=== PATIENT | male | born 1940 | race Caucasian/White ===

== ENCOUNTER 2016-10-19 10:44 | Emergency (ER) | payer MEDICARE ==
[2016-10-19] MEDS ORDERED: NITROGLYCERIN OINT 1 INCH/GM PACKET TOPICAL STA (11:31)
--- NOTE | 2016-10-19 11:36 | ED ---
Chest Pain HPI - General Chief Complaint: Chest Pain Stated Complaint: Chest pain Time Seen by Provider: 10/19/16 11:00 Source: patient, family, RN notes reviewed Mode of arrival: ambulatory - History of Present Illness Initial Comments: This is a 76 -year-old male with a history of chronic atrial fibrillation and history of heart disease who states he had the onset this morning of severe right-sided chest heaviness that went to his throat and to his back. It started around 05/03/1930 this morning. He took nitroglycerin without much relief later took another without much relief he states it was 8/10 severity he states that after he arrived in the emergency department and had oxygen placed with no change.. He states he is scheduled to be admitted to have his atrial fibrillation regulated. He denies any fevers chills nausea vomiting sweats cough or other symptoms at this time. MD Complaint: chest pain - Related Data Home Medications Medication Instructions Recorded Confirmed Metoprolol Succinate 25 mg PO QAM 07/08/14 10/19/16 Nitroglycerin Sl Tabs [Nitrostat] 0.4 mg SUBLINGUAL Q5M PRN 07/08/14 10/19/16 Apixaban [Eliquis] 5 mg PO BID 07/20/16 10/19/16 Aspirin 81 mg PO DAILY 07/20/16 10/19/16 Cholecalciferol [Vitamin D3] 1,000 unit PO DAILY 07/20/16 10/19/16 Multivitamin [Men's Multi-Vitamin] 1 tab PO DAILY 07/20/16 10/19/16 Vitamin E 400 unit PO DAILY 07/20/16 10/19/16 amLODIPine BESYLATE [Norvasc] 2.5 mg PO DAILY 07/20/16 10/19/16 metFORMIN HCL [Glucophage] 500 mg PO DAILY 07/20/16 10/19/16 Losartan Potassium 100 mg PO DAILY 10/19/16 10/19/16 Simvastatin [Zocor] 20 mg PO HS 10/19/16 10/19/16 Allergies Allergy/AdvReac Type Severity Reaction Status Date / Time No Known Allergies Allergy Verified 10/19/16 11:16 Review of Systems ROS Statement: Those systems with pertinent positive or pertinent negative responses have been documented in the HPI. ROS Other: All systems not noted in ROS Statement are negative. EKG Findings - EKG Results: EKG: interpreted by ANNA (Atrial fibrillation rate was 65 QRS duration 90 QT/ QTC of 372/386 left exodeviation old septal changes also old inferior changes.) Past Medical History Past Medical History: Atrial Fibrillation, Chest Pain / Angina, Diabetes Mellitus, Hyperlipidemia, Hypertension, Sleep Apnea/CPAP/BIPAP Additional Past Medical History / Comment(s): SOB w/exertion, uses BIPAP History of Any Multi-Drug Resistant Organisms: None Reported Past Surgical History: Heart Catheterization With Stent, Joint Replacement Additional Past Surgical History / Comment(s): bilateral knee replacement, recent cardioversion Past Anesthesia/Blood Transfusion Reactions: No Reported Reaction, Motion Sickness Date of Last Stent Placement:: 2013 Past Psychological History: No Psychological Hx Reported Smoking Status: Former smoker Past Alcohol Use History: Rare Additional Past Alcohol Use History / Comment(s): quit smoking 1973, smoked since age of 20-smoked cigars & pipe Past Drug Use History: None Reported - Past Family History Daughter(s) Family Medical History: Cancer Sister(s) Family Medical History: Deep Vein Thrombosis (DVT) General Exam - General Exam Comments Initial Comments: This is a well-developed well-nourished awake alert oriented times 3 male General appearance: alert, in no apparent distress Head exam: Present: atraumatic, normocephalic, normal inspection Eye exam: Present: normal appearance, PERRL, EOMI. Absent: scleral icterus, conjunctival injection, periorbital swelling ENT exam: Present: normal exam, mucous membranes moist Neck exam: Present: normal inspection. Absent: tenderness, meningismus, lymphadenopathy Respiratory exam: Present: normal lung sounds bilaterally. Absent: respiratory distress, wheezes, rales, rhonchi, stridor Cardiovascular Exam: Present: regular rate, normal rhythm, normal heart sounds. Absent: systolic murmur, diastolic murmur, rubs, gallop, clicks GI/Abdominal exam: Present: soft, normal bowel sounds. Absent: distended, tenderness, guarding, rebound, rigid Extremities exam: Present: normal inspection, full ROM, normal capillary refill. Absent: tenderness, pedal edema, joint swelling, calf tenderness Back exam: Present: normal inspection Neurological exam: Present: alert, oriented X3, CN II-XII intact Psychiatric exam: Present: normal affect, normal mood Skin exam: Present: warm, dry, intact, normal color. Absent: rash Course Vital Signs 10/19/16 10/19/16 10/19/16 10:49 11:23 12:40 Temperature 98.4 F Pulse Rate 76 64 Pulse Rate [ 69 [facility] ] Respiratory 18 18 Rate Blood Pressure 145/72 116/70 O2 Sat by Pulse 98 98 Oximetry 10/19/16 14:04 Temperature 97.8 F Pulse Rate 66 Pulse Rate [ [facility] Director ] Respiratory 16 Rate Blood Pressure 113/62 O2 Sat by Pulse 100 Oximetry - Reevaluation(s) Reevaluation #1: 10/19/16 15:24 He states he had no major relief he does point right to the right costosternal junction however. He does get worse with movements and deep breathing. Chest Pain MDM - MDM X-rays are nonspecific I did a long discussion with the patient has regarding the findings. The presentation is consistent with costochondritic etiology versus cardiac or pulmonary. Patient will be discharged he went to follow-up with his doctor and return when necessary Disposition Clinical Impression: Costochondritis, acute, Atypical chest pain Disposition: HOME SELF-CARE Condition: Good Instructions: Costochondritis (ED), Chest Pain (ED) Additional Instructions: It is okay to use her home pain medication. Referrals: Musa Knight MD [Primary Care Provider] - 1-2 days
[2016-10-19 12:04] LABS: Basophils % (A) 1 %; CH 32.4; CHCM 34.8; Eosinophils # (A) 0.1 k/uL (0-0.7); Eosinophils % (A) 2 %; HCT 41.5 % (39.0-53.0); HDW 2.88; HGB 13.9 gm/dL (13.0-17.5); Luc # (Auto) 0.15; Luc % (Auto) 3; Lymphocytes # (A) 1.6 k/uL (1.0-4.8); Lymphocytes % (A) 30 %; MCH 31.3 pg (25.0-35.0); MCHC 33.5 g/dL (31.0-37.0); MCV 93.5 fL (80.0-100.0); Mean Platelet Volume 7.6; Monocytes # (A) 0.3 k/uL (0-1.0); Monocytes % (A) 6 %; Neutrophils # (A) 3.3 k/uL (1.3-7.7); Neutrophils % (A) 59 %; RBC 4.44 m/uL (4.30-5.90); RDW 13.4 % (11.5-15.5); WBC 5.5 k/uL (3.8-10.6); WBC (Perox) 5.61
[2016-10-19 12:11] LABS: ALT 52 U/L (21-72); AST 32 U/L (17-59); Alkaline Phosphatase 42 U/L (38-126); Amylase <30 U/L (30-110); Anion Gap 10 mmol/L; Blood Urea Nitrogen 21 mg/dL (9-20); Calcium 8.7 mg/dL (8.4-10.2); Carbon Dioxide 26 mmol/L (22-30); Chloride 108 mmol/L (98-107); Glucose 112 mg/dL (74-99); Magnesium 2.1 mg/dL (1.6-2.3); Non-African American GFR(MDRD) >60 (>60 ml/min/1.73 sqM); Potassium 4.1 mmol/L (3.5-5.1); Sodium 144 mmol/L (137-145); Total Protein 6.2 g/dL (6.3-8.2)
[2016-10-19 12:20] LABS: INR 1.2 (<1.1); Partial Thromboplastin Time 23.6 sec (22.0-30.0); Prothrombin Time 11.6 sec (9.0-12.0)
--- NOTE | 2016-10-19 12:41 | XR ---
EXAMINATION TYPE: XR chest 2V DATE OF EXAM: 10/19/2016 12:20 PM COMPARISON: 07/03/2014 HISTORY: 76-year-old male with chest pain TECHNIQUE: Frontal and lateral views FINDINGS: Heart is upper limits of normal in size with mild elongation of the thoracic aorta. Pulmonary vascula ture within normal limits. Some strandy left basilar opacity is noted. IMPRESSION: Some strandy left basilar atelectasis. No definite acute process.
[2016-10-19 13:02] LABS: Creatine Kinase 139 U/L (55-170)
[2016-10-19 13:14] LABS: Creatine Kinase MB 2.1 ng/mL (0.0-2.4); Troponin I <0.012 ng/mL (0.000-0.034)
[2016-10-19 14:04] VITALS: RESP 16
[2016-10-19 15:54] VITALS: BP 118/70; PULSE 55; TEMP 98.7
== END 2016-10-19 16:00 | disposition home or self-care (01) ==
LOC: EC 10:44
DX: M94.0 Chondrocostal junction syndrome [Tietze] (principal); R07.89 Other chest pain; I48.2 Chronic atrial fibrillation; I51.9 Heart disease, unspecified; E11.9 Type 2 diabetes mellitus without complications; I10 Essential (primary) hypertension; E78.5 Hyperlipidemia, unspecified; Z79.01 Long term (current) use of anticoagulants; Z79.82 Long term (current) use of aspirin; Z79.899 Other long term (current) drug therapy; Z87.891 Personal history of nicotine dependence
CPT/HCPCS: 36415; 71020; 80053; 82150; 82550; 82553; 83690; 83735; 83880; 84484; 85025; 85610; 85730; 99285

== ENCOUNTER 2016-10-22 10:14 | Inpatient (IN) | payer MEDICARE ==
[2016-10-22 14:44] VITALS: BMI 44.7
[2016-10-22] MEDS ORDERED: MAGNESIUM SULFATE-D5W PMX 1 GM in DEXTROSE/WATER 1 100ML.BAG IVPB ONE (15:05)
[2016-10-22 16:13] LABS: Anion Gap 12 mmol/L; Blood Urea Nitrogen 21 mg/dL (9-20); Calcium 9.3 mg/dL (8.4-10.2); Carbon Dioxide 26 mmol/L (22-30); Chloride 107 mmol/L (98-107); Glucose 86 mg/dL (74-99); Non-African American GFR(MDRD) 59 (>60 ml/min/1.73 sqM); Potassium 4.4 mmol/L (3.5-5.1); Sodium 145 mmol/L (137-145)
[2016-10-22 16:46] LABS: Glucose,Whole Blood 99 mg/dL (75-99)
[2016-10-22] MEDS ORDERED: DOFETILIDE 500 MCG CAP PO STA (17:37)
[2016-10-22] MEDS: APIXABAN 5 MG TAB PO SCH (20:02)
[2016-10-22] MEDS: ATORVASTATIN 20 MG TAB PO SCH (20:02)
[2016-10-22 20:35] LABS: Glucose,Whole Blood 93 mg/dL (75-99)
[2016-10-23] MEDS ORDERED: DOFETILIDE 500 MCG CAP PO ONE (06:00)
[2016-10-23 06:59] LABS: Glucose,Whole Blood 104 mg/dL (75-99)
[2016-10-23] MEDS: metFORMIN 500 MG TAB PO SCH (07:03)
[2016-10-23 07:46] LABS: Anion Gap 12 mmol/L; Blood Urea Nitrogen 21 mg/dL (9-20); Calcium 9.2 mg/dL (8.4-10.2); Carbon Dioxide 23 mmol/L (22-30); Chloride 105 mmol/L (98-107); Glucose 95 mg/dL (74-99); Non-African American GFR(MDRD) 59 (>60 ml/min/1.73 sqM); Potassium 4.1 mmol/L (3.5-5.1); Sodium 140 mmol/L (137-145)
[2016-10-23] MEDS: MAGNESIUM OXIDE 250 MG TAB PO SCH (08:59)
[2016-10-23] MEDS ORDERED: LOSARTAN 50 MG TAB PO SCH (09:00)
[2016-10-23] MEDS ORDERED: METOPROLOL SUCCINATE (ER) 25 MG TAB.ER.24H PO SCH (09:00)
[2016-10-23] MEDS: APIXABAN 5 MG TAB PO SCH ×2 (09:00→22:07)
[2016-10-23] MEDS: ASPIRIN 81 MG CHEW PO SCH (09:00)
[2016-10-23] MEDS ORDERED: amLODIPine 2.5 MG TAB PO SCH (09:00)
--- NOTE | 2016-10-23 10:54 | PN ---
A 76-year-old male patient of Dr. Pascual and Dr. Knight who has persistent atrial fibrillation with shortness of breath with minimal exertion. He is brought in for dofetilide initiation. His baseline 12-lead ECG shows atrial fibrillation with a slow ventricular response. His baseline labs were as follows: Sodium 145, potassium 4.4, chloride 107, bicarb 26, BUN 21, creatinine 1.2, magnesium 2.0, calcium 9.3, ( ) 0.9. His creatinine clearance is calculated greater than 100. He received dofetilide last night 500 mcg. This morning he received another 500 mcg of dofetilide and at about 7:30 in the morning he converted back to sinus rhythm. However, at night he was significantly bradycardic during atrial fibrillation. His 12-lead ECG after conversion showed sinus rhythm, normal LA interval, narrow QRS, and absolute QT interval of about 440 to 450 ms after the second dose of dofetilide 500 mcg, with a ventricular rate of 59 beats a minute. He feels well. He denies any chest discomfort. No dizziness, lightheadedness. He is ambulating in the hallways. His follow up labs normal. His potassium is 4.1, magnesium 2.0. Kidney functions stable. IMPRESSION: 1. Persistent atrial fibrillation, symptomatic. 2. Bradycardia, especially at night. 3. Obstructive sleep apnea on BiPAP mask. 4. Adult-onset diabetes. 5. Hypertension. 6. Coronary artery disease, status post stenting. 7. Increased body mass index. 8. Persistent symptomatic atrial fibrillation being the admitting diagnosis and dofetilide has been initiated. SUGGEST: Follow dofetilide protocol. We will continue 500 mcg tonight and continue Slow-Mag. Add spironolactone 25 mg p.o. daily, stop amlodipine and stop metoprolol and start carvedilol tomorrow and continue losartan 100 mg daily and continue Eliquis. I will consult Dr. Knight for diabetes management.
[2016-10-23] MEDS: SPIRONOLACTONE 25 MG TAB PO SCH (12:28)
[2016-10-23 12:39] LABS: Glucose,Whole Blood 98 mg/dL (75-99)
[2016-10-23] MEDS ORDERED: NITROGLYCERIN SL TABS 0.4 MG TAB SUBLINGUAL PRN (12:45)
[2016-10-23 17:08] LABS: Glucose,Whole Blood 132 mg/dL (75-99)
[2016-10-23] MEDS ORDERED: DOFETILIDE 125 MCG CAP PO ONE (18:00)
[2016-10-23] MEDS: ATORVASTATIN 20 MG TAB PO SCH (22:07)
[2016-10-23 22:17] LABS: Glucose,Whole Blood 109 mg/dL (75-99)
[2016-10-24] MEDS ORDERED: DOFETILIDE 500 MCG CAP PO ONE ×2 (06:00→18:00)
[2016-10-24 06:28] LABS: Anion Gap 10 mmol/L; Blood Urea Nitrogen 21 mg/dL (9-20); Calcium 9.4 mg/dL (8.4-10.2); Carbon Dioxide 26 mmol/L (22-30); Chloride 106 mmol/L (98-107); Glucose 92 mg/dL (74-99); Magnesium 2.1 mg/dL (1.6-2.3); Non-African American GFR(MDRD) 59 (>60 ml/min/1.73 sqM); Potassium 4.5 mmol/L (3.5-5.1); Sodium 142 mmol/L (137-145)
[2016-10-24 06:35] LABS: Glucose,Whole Blood 93 mg/dL (75-99)
[2016-10-24] MEDS: metFORMIN 500 MG TAB PO SCH (06:39)
[2016-10-24] MEDS ORDERED: CARVEDILOL 3.125 MG TAB PO SCH (07:30)
[2016-10-24] MEDS: APIXABAN 5 MG TAB PO SCH ×2 (08:38→22:32)
[2016-10-24] MEDS: SPIRONOLACTONE 25 MG TAB PO SCH (08:39)
[2016-10-24] MEDS: ASPIRIN 81 MG CHEW PO SCH (08:39)
[2016-10-24] MEDS: CHOLECALCIFEROL 1,000 UNIT TAB PO SCH (08:39)
[2016-10-24] MEDS: MAGNESIUM OXIDE 250 MG TAB PO SCH (08:39)
[2016-10-24] MEDS: LOSARTAN 50 MG TAB PO SCH (08:39)
[2016-10-24] MEDS ORDERED: amLODIPine 2.5 MG TAB PO SCH (09:00)
[2016-10-24 12:07] LABS: Glucose,Whole Blood 82 mg/dL (75-99)
[2016-10-24] MEDS: MULTIVITAMINS, THERA 1 EACH TAB PO SCH (12:26)
--- NOTE | 2016-10-24 13:51 | PN ---
Mr. La is doing well. He is sinus rhythm. He denies any chest discomfort. No undue shortness of breath. He denies any palpitations. He is ambulating in the hallways. He maintains sinus rhythm. His temperature is 97 degrees Fahrenheit. His pulse rate is in the 50s. Blood pressure 139/63 mm of Hg. Normal respirations. Head and neck examination is normal. Breath sounds are normal. No rhonchi. No crackles. Heart sounds S1, S2 are normal. Very soft systolic murmur is audible. No lower extremity edema. His labs are reviewed. His sodium is 142, potassium 4.5, chloride 106, BUN 21, creatinine 1.2, GFR greater than 60, magnesium 2.1, calcium 9.4. 12 lead ECG shows sinus rhythm with blocked P waves and ( ) QT interval 440 ms. He is currently on dofetelide 500 mcg given twice daily so far. He chemically converted after the second dose. There has been no change in his QT interval since yesterday. PLAN: Continue Apixaban 5 mg twice daily. Continue baby aspirin. Continue atorvastatin. I am reducing the dose of carvedilol to 1.563 mg p.o. b.i.d. week and he will be given dofetelide this evening, losartan 100 mg will continue, Slow-Mag will continue, spironolactone will continue and then Metformin will continue. I have D/C'd amlodipine. His blood pressure is in the normal range at this time. If necessary, I will reinstitute amlodipine or simply increase losartan to 150 mg a day.
--- NOTE | 2016-10-24 14:28 | P.CONS ---
History of Present Illness - Reason for Consult Consult date: 10/23/16 Medical management Requesting physician: Justo Honeycutt - Chief Complaint A. fib with RVR, CAD, obstructive sleep apnea, type 2 diabetes, hypertensio - History of Present Illness 76-year-old male morbidly obese one of my office patient of known for long time with past medical history of CAD, history of A. fib, history of obstructive sleep apnea and adult type of diabetes who has been seeing cardiology for the last few years. Patient was seen by cardiology recently for persistent A. fib with RVR with not control A. fib did not convert and become more symptomatic. Patient apparently was referred from Dr. Pascual on to Dr. Carver and hospitalized for Tikosyn treatment. I was requested to see patient in medical consultation. Review of Systems Constitutional: Reports fatigue, Reports lethargy, Reports malaise, Reports weight gain, Denies as per HPI, Denies anorexia, Denies chills, Denies chronic headaches, Denies chronic pain, Denies daytime sleepiness, Denies fever, Denies night sweats, Denies poor appetite, Denies sweats, Denies weakness, Denies weight loss Eyes: bilateral as per HPI Ears: bilateral: decreased hearing Ears, nose, mouth and throat: Reports nasal discharge, Reports sinus pressure, Reports swelling in mouth, Denies as per HPI, Denies ant. neck pain, Denies bleeding gums, Denies dental pain, Denies dysphagia, Denies epistaxis, Denies headache, Denies hoarseness, Denies mouth pain, Denies nasal congestion, Denies neck fullness/pressure, Denies neck lump, Denies nose pain, Denies odynophagia, Denies post-nasal drip, Denies sinus pain, Denies swelling in throat, Denies sore throat, Denies vertigo, Denies voice changes Cardiovascular: Reports chest pain, Reports decreased exercise tolerance, Reports dyspnea on exertion, Reports edema, Reports high blood pressure, Reports lightheadedness, Reports orthopnea, Reports palpitations, Reports paroxysmal nocturnal dyspnea, Reports shortness of breath, Denies as per HPI, Denies claudication, Denies irregular heart beat, Denies phlebitis, Denies rapid heart beat, Denies syncope Respiratory: Reports congestion, Reports cough, Reports dyspnea, Reports wheezing, Denies as per HPI, Denies cough with sputum, Denies excessive sputum, Denies hemoptysis, Denies home oxygen, Denies pain, Denies pain on inspiration, Denies pleurisy, Denies respiratory infections, Denies sleep apnea, Denies snoring Gastrointestinal: Reports abdominal pain, Reports belching, Reports bloating, Reports indigestion, Reports nausea, Denies as per HPI, Denies BRBPR, Denies change in bowel habits, Denies coffee ground emesis, Denies constipation, Denies diarrhea, Denies dyspepsia, Denies early satiety, Denies excessive gas, Denies heartburn, Denies hematemesis, Denies hematochezia, Denies jaundice, Denies lactose intolerance, Denies loss of appetite, Denies melena, Denies vomiting Genitourinary: Reports urinary frequency, Reports urinary hesitancy, Denies as per HPI, Denies decreased libido, Denies difficulties fathering child, Denies discharge, Denies dysuria, Denies erectile dysfunction, Denies flank pain, Denies genital pain, Denies genital sores, Denies hematuria, Denies impotence, Denies incontinence, Denies kidney stones, Denies nocturia, Denies polyuria, Denies testicular lump, Denies testicular pain, Denies urinary retention Musculoskeletal: Reports limitation of motion, Reports myalgias, Reports neck pain, Denies as per HPI, Denies arm numbness/tingling, Denies atrophy, Denies fractures, Denies frequent falls, Denies gait dysfunction, Denies hot joints, Denies leg numbness/tingling, Denies loss of height, Denies low back pain, Denies morning stiffness, Denies muscle cramps, Denies muscle weakness, Denies neck stiffness, Denies prior amputations, Denies redness of joints, Denies shooting arm pain, Denies shooting leg pain Musculoskeletal: right: hip stiffness, bilateral: ankle pain Integumentary: Reports pruritus, Reports rash, Denies as per HPI, Denies acne, Denies boils, Denies brittle nails, Denies change in hair/nails, Denies color changes, Denies darkening of skin, Denies depigmentation, Denies dryness, Denies foot/leg ulcers, Denies growths, Denies hirsutism, Denies lesions, Denies onychomycosis, Denies sores, Denies striae, Denies unusual bruising, Denies wounds Neurological: Reports paresthesias, Reports tingling, Denies as per HPI, Denies aphasia, Denies ataxia, Denies balance difficulties, Denies burning pain, Denies change in mentation, Denies change in smell/taste, Denies change in speech, Denies confusion, Denies convulsions, Denies double vision, Denies gait dysfunction, Denies head injury, Denies headaches, Denies hearing difficulties, Denies lack of coordination, Denies loss of vision, Denies memory loss, Denies migraines, Denies motor disturbance, Denies numbness, Denies paralysis, Denies seizures, Denies sensory deficit, Denies spasticity, Denies syncope, Denies tic , Denies transient paralysis, Denies tremors, Denies vertigo, Denies weakness, Denies visual changes Psychiatric: Reports depression, Denies as per HPI, Denies anhedonia, Denies anxiety, Denies anxiety attacks, Denies change in appetite, Denies change in libido, Denies change in sleep habits, Denies confusion, Denies difficulty concentrating, Denies disorientation, Denies hallucinations, Denies hopelessness , Denies hypersomnia, Denies insomnia, Denies irritability, Denies memory loss, Denies mood swings, Denies paranoia, Denies sadness/tearfulness, Denies sleep disturbances, Denies suicidal ideation Endocrine: Reports cold intolerance, Reports excessive thirst, Reports fatigue, Denies as per HPI, Denies deepening of the voice, Denies excessive sweating, Denies flushing, Denies heat intolerance, Denies high blood sugars, Denies increase in ring/shoe/hat size, Denies low blood sugars, Denies nocturia, Denies palpitations, Denies polydipsia, Denies polyphagia, Denies polyuria, Denies proptosis, Denies recent glucocorticoid use, Denies thyroid mass, Denies weight change Hematologic/Lymphatic: Reports easy bruising, Denies as per HPI, Denies easy bleeding, Denies lymphadenopathy, Denies lymphedema, Denies thrombophilia Allergic/Immunologic: Reports allergic rhinitis, Denies as per HPI, Denies anaphylaxis, Denies angioedema, Denies gluten intolerance, Denies persistent infections, Denies seasonal allergies, Denies urticaria, Denies wheezing Past Medical History Past Medical History: Atrial Fibrillation, Chest Pain / Angina, Diabetes Mellitus, Hyperlipidemia, Hypertension, Sleep Apnea/CPAP/BIPAP Additional Past Medical History / Comment(s): SOB w/exertion, uses BIPAP History of Any Multi-Drug Resistant Organisms: None Reported Past Surgical History: Heart Catheterization With Stent, Joint Replacement Additional Past Surgical History / Comment(s): bilateral knee replacement, recent cardioversion Past Anesthesia/Blood Transfusion Reactions: No Reported Reaction, Motion Sickness Date of Last Stent Placement:: 2013 Past Psychological History: No Psychological Hx Reported Smoking Status: Former smoker Past Alcohol Use History: Rare Additional Past Alcohol Use History / Comment(s): quit smoking 1973, smoked since age of 20-smoked cigars & pipe Past Drug Use History: None Reported - Past Family History Daughter(s) Family Medical History: Cancer Sister(s) Family Medical History: Deep Vein Thrombosis (DVT) Medications and Allergies Home Medications Medication Instructions Recorded Confirmed Type Metoprolol Succinate 25 mg PO QAM 07/08/14 10/22/16 History Nitroglycerin Sl Tabs [Nitrostat] 0.4 mg SUBLINGUAL Q5M PRN 07/08/14 10/22/16 History Apixaban [Eliquis] 5 mg PO BID 07/20/16 10/22/16 History Aspirin 81 mg PO DAILY 07/20/16 10/22/16 History Cholecalciferol [Vitamin D3] 1,000 unit PO DAILY 07/20/16 10/22/16 History Multivitamin [Men's Multi-Vitamin] 1 tab PO DAILY 07/20/16 10/22/16 History Vitamin E 400 unit PO DAILY 07/20/16 10/22/16 History amLODIPine BESYLATE [Norvasc] 2.5 mg PO DAILY 07/20/16 10/22/16 History metFORMIN HCL [Glucophage] 500 mg PO DAILY 07/20/16 10/22/16 History Losartan Potassium 100 mg PO DAILY 10/19/16 10/22/16 History Simvastatin [Zocor] 20 mg PO HS 10/19/16 10/22/16 History Allergies Allergy/AdvReac Type Severity Reaction Status Date / Time No Known Allergies Allergy Verified 10/22/16 14:23 Physical Exam Vitals: Vital Signs Temp Pulse Resp BP Pulse Ox 10/23/16 09:02 97.1 F L 59 L 143/81 95 10/23/16 04:00 61 16 121/71 10/23/16 00:00 56 L 14 90/54 10/22/16 20:13 96.0 F L 63 18 144/81 10/22/16 14:21 97 F L 78 17 136/67 96 Intake and Output 10/22/16 10/23/16 10/23/16 22:59 06:59 14:59 Intake Total 776 540 180 Output Total 500 Balance 776 540 -320 Intake: Oral 776 540 180 Output: Urine 500 Other: Weight 149.685 kg 150.3 kg - Constitutional General appearance: no average body habitus, no cooperative, no disheveled, no mild distress, morbidly obese, no acute distress, no obese, no severe distress, no thin - EENT Eyes: no abnormal pupil, no anicteric sclerae, no disc margins sharp, no edentulous, no EOMI, no PERRLA, no fundus normal, no photophobia, no dentition normal, no poor dentition, no ptosis, no scleral icterus, normal appearance ENT: no hard of hearing, no hearing grossly normal, no NA/AT, no normal oropharynx, no other, pharyngeal erythema, no thrush, no tonsillar exudates, no tonsillar swelling Ears: bilateral: normal - Neck Neck: no lymphadenopathy, normal ROM, no other, no rigidity, no stridor, no thyromegaly Carotids: bilateral: upstroke normal, upstroke delayed Thyroid: bilateral: normal size - Respiratory Respiratory: bilateral: diminished, dullness - Cardiovascular Rhythm: irregularly irregular Heart sounds: normal: S1, S2 Abnormal Heart Sounds: systolic murmur, S3 Gallop - Gastrointestinal General gastrointestinal: no absent bowel sounds, decreased bowel sounds, distended, no hepatomegaly, no hyperactive bowel sounds, no normal bowel sounds , no organomegaly, no rigid, no scaphoid, soft, no splenomegaly, no tenderness, no umbilical hernia, no ventral hernia - Integumentary Integumentary: no calor, no cellulitis, no cyanotic, no decreased turgor, no flushed, no jaundiced, normal, no normal turgor, pale, rash, no ulcer - Neurologic Neurologic: CNII-XII intact - Musculoskeletal Musculoskeletal: gait normal, generalized weakness, strength equal bilaterally - Psychiatric Psychiatric: A&O x's 3, appropriate affect Results CBC & Chem 7: 10/24/16 05:47 Labs: Abnormal Lab Results - Last 24 Hours (Table) 10/22/16 10/23/16 10/23/16 Range/Units 15:31 06:44 06:52 BUN 21 H 21 H (9-20) mg/dL POC Glucose (mg/dL) 104 H (75-99) mg/dL Assessment and Plan Plan: 1 A. fib with RVR: Symptomatic, patient was hospitalized started on Tikosyn IV has been watch hemodynamically for any arrhythmia or any significant change in EKG. 2 type 2 diabetes: Patient has been on metformin, resume medication continue Accu-Chek with sliding scales coverage. 3 hypertension: Has been on losartan along with metoprolol. 4 hyperlipidemia: Has been on atorvastatin continue medication. 5 obstructive sleep apnea: Patient had CPAP and using regularly. 6 chronic edema: Has been use diuretics on and off on demand. 7 mild neuropathy: Patient still refuses medication at this point for it. 8 congestive heart failure: Most likely diastolic dysfunction and chronic has been on diuretics along with losartan and spironolactone with furosemide. 9 GERD/GI prophylaxis: Patient has been on Pepcid 20 mg daily. 10 BPH: Watch for any urinary retention. DVT prophylaxis: Patient is on anticoagulation currently. CODE STATUS: Full code. Dr. Honeycutt thank you much for the consult if I can be any further help to please let me know thank you.
[2016-10-24 16:59] LABS: Glucose,Whole Blood 87 mg/dL (75-99)
[2016-10-24] MEDS: CARVEDILOL 1.563 MG TAB PO SCH (17:23)
[2016-10-24 20:44] LABS: Glucose,Whole Blood 91 mg/dL (75-99)
[2016-10-24] MEDS: ATORVASTATIN 20 MG TAB PO SCH (22:32)
--- NOTE | 2016-10-24 23:35 | P.PN ---
Subjective Principal diagnosis: A. fib with RVR, CAD, obstructive sleep apnea, type 2 diabetes, hypertensio 76-year-old male morbidly obese one of my office patient of known for long time with past medical history of CAD, history of A. fib, history of obstructive sleep apnea and adult type of diabetes who has been seeing cardiology for the last few years. Patient was seen by cardiology recently for persistent A. fib with RVR with not control A. fib did not convert and become more symptomatic. Patient apparently was referred from Dr. Pascual on to Dr. Carver and hospitalized for Tikosyn treatment. I was requested to see patient in medical consultation. Patient has been on Tikosyn for 48 hours has been doing well no side effects or complications so far medication no arrhythmia and no change in QT interval. Objective - Vital Signs Vital signs: Vital Signs Temp 97.0 F L 10/24/16 08:00 Pulse 58 L 10/24/16 12:00 Resp 14 10/24/16 04:00 BP 139/63 10/24/16 12:00 Pulse Ox 96 10/24/16 12:00 Intake & Output 10/23/16 10/24/16 10/24/16 18:59 06:59 18:59 Intake Total 180 240 Output Total 500 750 Balance -320 -750 240 Weight 149.8 kg Intake: Oral 180 240 Output: Urine 500 750 Other: # Voids 1 0 # Bowel Movements 1 0 - Constitutional General appearance: Present: cooperative, morbidly obese, no acute distress. Absent: average body habitus, disheveled, mild distress, obese, severe distress , thin - EENT Eyes: Present: normal appearance. Absent: abnormal pupil, anicteric sclerae, disc margins sharp, edentulous, EOMI, PERRLA, fundus normal, photophobia, dentition normal, poor dentition, ptosis, scleral icterus ENT: Present: hard of hearing, normal oropharynx. Absent: hearing grossly normal, NA/AT, other, pharyngeal erythema, thrush, tonsillar exudates, tonsillar swelling Ears: bilateral: normal - Neck Neck: Present: normal ROM Carotids: bilateral: upstroke normal Thyroid: bilateral: normal size - Respiratory Respiratory: bilateral: CTA, diminished - Cardiovascular Rhythm: irregularly irregular Heart sounds: normal: S1, S2 Abnormal Heart Sounds: Present: systolic murmur, S3 Gallop - Gastrointestinal General gastrointestinal: Present: normal bowel sounds, scaphoid, soft. Absent : absent bowel sounds, decreased bowel sounds, distended, hepatomegaly, hyperactive bowel sounds, organomegaly, rigid, splenomegaly, tenderness, umbilical hernia, ventral hernia - Integumentary Integumentary: Present: normal, pale, rash. Absent: calor, cellulitis, cyanotic , decreased turgor, flushed, jaundiced, normal turgor, ulcer - Neurologic Neurologic: Present: CNII-XII intact. Absent: focal deficits - Musculoskeletal Musculoskeletal: Present: gait normal, generalized weakness. Absent: strength equal bilaterally, right sided weakness, left sided weakness - Psychiatric Psychiatric: Present: A&O x's 3, appropriate affect. Absent: intact judgment & insight - Labs CBC & Chem 7: 10/24/16 05:47 Labs: Abnormal Lab Results - Last 24 Hours (Table) 10/23/16 10/23/16 10/24/16 Range/Units 17:05 21:45 05:47 BUN 21 H (9-20) mg/dL POC Glucose (mg/dL) 132 H 109 H (75-99) mg/dL Assessment and Plan Plan: 1 A. fib with RVR: Symptomatic, patient was hospitalized started on Tikosyn IV has been watch hemodynamically for any arrhythmia or any significant change in EKG. 2 type 2 diabetes: Patient has been on metformin, resume medication continue Accu-Chek with sliding scales coverage. 3 hypertension: Has been on losartan along with metoprolol. 4 hyperlipidemia: Has been on atorvastatin continue medication. 5 obstructive sleep apnea: Patient had CPAP and using regularly. 6 chronic edema: Has been use diuretics on and off on demand. 7 mild neuropathy: Patient still refuses medication at this point for it. 8 congestive heart failure: Most likely diastolic dysfunction and chronic has been on diuretics along with losartan and spironolactone with furosemide. 9 GERD/GI prophylaxis: Patient has been on Pepcid 20 mg daily. 10 BPH: Watch for any urinary retention. DVT prophylaxis: Patient is on anticoagulation currently.
[2016-10-25] MEDS: CARVEDILOL 1.563 MG TAB PO SCH ×2 (05:58→16:46)
[2016-10-25] MEDS: metFORMIN 500 MG TAB PO SCH (05:59)
[2016-10-25] MEDS ORDERED: DOFETILIDE 500 MCG CAP PO ONE (06:00)
[2016-10-25 06:30] LABS: Glucose,Whole Blood 90 mg/dL (75-99)
[2016-10-25 06:34] LABS: Anion Gap 11 mmol/L; Calcium 9.4 mg/dL (8.4-10.2); Carbon Dioxide 21 mmol/L (22-30); Chloride 107 mmol/L (98-107); Glucose 85 mg/dL (74-99); Non-African American GFR(MDRD) >60 (>60 ml/min/1.73 sqM); Sodium 139 mmol/L (137-145)
[2016-10-25 06:37] LABS: Blood Urea Nitrogen 20 mg/dL (9-20); Magnesium 2.1 mg/dL (1.6-2.3); Potassium 4.5 mmol/L (3.5-5.1)
[2016-10-25] MEDS: APIXABAN 5 MG TAB PO SCH ×2 (08:29→20:46)
[2016-10-25] MEDS: SPIRONOLACTONE 25 MG TAB PO SCH (08:29)
[2016-10-25] MEDS: MAGNESIUM OXIDE 250 MG TAB PO SCH (08:29)
[2016-10-25] MEDS: CHOLECALCIFEROL 1,000 UNIT TAB PO SCH (08:30)
[2016-10-25] MEDS: ASPIRIN 81 MG CHEW PO SCH (08:30)
[2016-10-25] MEDS: MULTIVITAMINS, THERA 1 EACH TAB PO SCH (08:30)
[2016-10-25] MEDS: LOSARTAN 50 MG TAB PO SCH (08:30)
[2016-10-25 12:01] LABS: Glucose,Whole Blood 94 mg/dL (75-99)
--- NOTE | 2016-10-25 16:25 | P.PN ---
Subjective 76-year-old male morbidly obese one of my office patient of known for long time with past medical history of CAD, history of A. fib, history of obstructive sleep apnea and adult type of diabetes who has been seeing cardiology for the last few years. Patient was seen by cardiology recently for persistent A. fib with RVR with not control A. fib did not convert and become more symptomatic. Patient apparently was referred from Dr. Pascual on to Dr. Carver and hospitalized for Tikosyn treatment. I was requested to see patient in medical consultation. Patient has been on Tikosyn for 48 hours has been doing well no side effects or complications so far medication no arrhythmia and no change in QT interval. 10/25: Patient has been seen by cardiology and now started on Tikosyn. Objective - Vital Signs Vital signs: Vital Signs Temp 97.8 F 10/25/16 08:31 Pulse 61 10/25/16 08:31 Resp 16 10/25/16 08:31 BP 121/65 10/25/16 08:31 Pulse Ox 95 10/25/16 08:31 Intake & Output 10/24/16 10/25/16 10/25/16 18:59 06:59 18:59 Intake Total 480 180 180 Output Total 1300 Balance 480 -1120 180 Weight 148.6 kg Intake: Oral 480 180 180 Output: Urine 1300 Other: # Voids 2 1 # Bowel Movements 0 0 - Exam General appearance: Present: cooperative, morbidly obese, no acute distress. Absent: average body habitus, disheveled, mild distress, obese, severe distress , thin - EENT Eyes: Present: normal appearance. Absent: abnormal pupil, anicteric sclerae, disc margins sharp, edentulous, EOMI, PERRLA, fundus normal, photophobia, dentition normal, poor dentition, ptosis, scleral icterus ENT: Present: hard of hearing, normal oropharynx. Absent: hearing grossly normal, NA/AT, other, pharyngeal erythema, thrush, tonsillar exudates, tonsillar swelling Ears: bilateral: normal - Neck Neck: Present: normal ROM Carotids: bilateral: upstroke normal Thyroid: bilateral: normal size - Respiratory Respiratory: bilateral: CTA, diminished - Cardiovascular Rhythm: irregularly irregular Heart sounds: normal: S1, S2 Abnormal Heart Sounds: Present: systolic murmur, S3 Gallop - Gastrointestinal General gastrointestinal: Present: normal bowel sounds, scaphoid, soft. Absent : absent bowel sounds, decreased bowel sounds, distended, hepatomegaly, hyperactive bowel sounds, organomegaly, rigid, splenomegaly, tenderness, umbilical hernia, ventral hernia - Integumentary Integumentary: Present: normal, pale, rash. Absent: calor, cellulitis, cyanotic , decreased turgor, flushed, jaundiced, normal turgor, ulcer - Neurologic Neurologic: Present: CNII-XII intact. Absent: focal deficits - Musculoskeletal Musculoskeletal: Present: gait normal, generalized weakness. Absent: strength equal bilaterally, right sided weakness, left sided weakness - Psychiatric Psychiatric: Present: A&O x's 3, appropriate affect. Absent: intact judgment & insight - Labs CBC & Chem 7: 10/25/16 05:43 Labs: Abnormal Lab Results - Last 24 Hours (Table) 10/25/16 Range/Units 05:43 Carbon Dioxide 21 L (22-30) mmol/L Assessment and Plan Plan: 1 A. fib with RVR: Symptomatic, patient was hospitalized started on Tikosyn IV has been watch hemodynamically for any arrhythmia or any significant change in EKG. 2 type 2 diabetes: Patient has been on metformin, resume medication continue Accu-Chek with sliding scales coverage. 3 hypertension: Has been on losartan along with metoprolol. 4 hyperlipidemia: Has been on atorvastatin continue medication. 5 obstructive sleep apnea: Patient had CPAP and using regularly. 6 chronic edema: Has been use diuretics on and off on demand. 7 mild neuropathy: Patient still refuses medication at this point for it. 8 congestive heart failure: Most likely diastolic dysfunction and chronic has been on diuretics along with losartan and spironolactone with furosemide. 9 GERD/GI prophylaxis: Patient has been on Pepcid 20 mg daily. 10 BPH: Watch for any urinary retention. DVT prophylaxis: Patient is on anticoagulation currently. Discharge plan: Home Impression and plan of care have been directed as dictated by the signing physician. Albertina Voss nurse practitioner acting as scribe for signing physician. Time with Patient: Greater than 30
[2016-10-25 16:51] LABS: Glucose,Whole Blood 101 mg/dL (75-99)
--- NOTE | 2016-10-25 17:11 | PN ---
Marty is doing well. He is maintaining sinus rhythm. He has not had any ventricular arrhythmias on dofetilide 500 mcg twice daily. He denies any chest discomfort. He is walking around quite comfortably; no breathing trouble. No dizziness, lightheadedness. No headaches. He is afebrile at 97.6. Heart rate is in the 50s and 60s. Blood pressure 130/70 mmHg. Respirations are normal. Breath sounds are normal. No rhonchi. No crackles. Equal air entry bilaterally. Heart sounds are normal. Normal S1. Normal S2. No murmurs. No gallops. Abdomen is soft, nontender. Extremities are warm. No edema. IMPRESSION: 1. Persistent atrial fibrillation, symptomatic. 2. Coronary artery disease, status post coronary stenting in the past. 3. Obstructive sleep apnea, on a BiPAP mask. 4. Nighttime bradycardia. 5. Adult-onset diabetes. 6. Hypertension, well controlled. 7. Chemical conversion with dofetilide, second dose. QT interval is 440 ms and is stable. On dofetilide his electrolytes are normal. Renal function is stable. Magnesium is stable. SUGGEST: Continue apixaban 5 mg twice daily for stroke prevention. Continue with the aspirin and atorvastatin for atherosclerosis. Beta blockers have been changed to carvedilol 1.563 twice daily for bradycardia and hypertension management. Losartan 100 mg a day to continue. Magnesium orally will continue. Spironolactone was added. Diabetes medication to continue. PLAN: If his QT interval is stable tomorrow and tonight, he will be discharged home and he will follow up in the office in about 2 weeks for the Holter monitor and a 12-lead ECG.
[2016-10-25] MEDS ORDERED: DOFETILIDE 500 MCG CAP PO STA (18:19)
[2016-10-25] MEDS: ATORVASTATIN 20 MG TAB PO SCH (20:46)
[2016-10-25 20:58] LABS: Glucose,Whole Blood 84 mg/dL (75-99)
[2016-10-25 21:05] VITALS: RESP 18
[2016-10-26] MEDS ORDERED: DOFETILIDE 500 MCG CAP PO ONE (06:00)
[2016-10-26 06:04] LABS: Glucose,Whole Blood 86 mg/dL (75-99)
[2016-10-26] MEDS: metFORMIN 500 MG TAB PO SCH (06:17)
[2016-10-26] MEDS: CARVEDILOL 1.563 MG TAB PO SCH (06:17)
[2016-10-26] MEDS: MULTIVITAMINS, THERA 1 EACH TAB PO SCH (08:12)
[2016-10-26] MEDS: MAGNESIUM OXIDE 250 MG TAB PO SCH (08:12)
[2016-10-26] MEDS: ASPIRIN 81 MG CHEW PO SCH (08:12)
[2016-10-26] MEDS: SPIRONOLACTONE 25 MG TAB PO SCH (08:12)
[2016-10-26] MEDS: LOSARTAN 50 MG TAB PO SCH (08:12)
[2016-10-26] MEDS: APIXABAN 5 MG TAB PO SCH (08:12)
[2016-10-26] MEDS: CHOLECALCIFEROL 1,000 UNIT TAB PO SCH (08:12)
[2016-10-26 08:18] VITALS: TEMP 97.6
[2016-10-26 11:40] VITALS: BP 151/75; PULSE 66
[2016-10-26 12:00] LABS: Glucose,Whole Blood 93 mg/dL (75-99)
--- NOTE | 2016-10-26 12:52 | P.PN ---
Subjective 76-year-old male morbidly obese one of my office patient of known for long time with past medical history of CAD, history of A. fib, history of obstructive sleep apnea and adult type of diabetes who has been seeing cardiology for the last few years. Patient was seen by cardiology recently for persistent A. fib with RVR with not control A. fib did not convert and become more symptomatic. Patient apparently was referred from Dr. Pascual on to Dr. Carver and hospitalized for Tikosyn treatment. I was requested to see patient in medical consultation. Patient has been on Tikosyn for 48 hours has been doing well no side effects or complications so far medication no arrhythmia and no change in QT interval. 10/25: Patient has been seen by cardiology and now started on Tikosyn. 10/26: patient denies any chest pain, shortness of breath, palpitations. He has been using CPAP. Patient states he thinks he is going home today.heart rate is running in the 50s and 60s.he is currently in a sinus rhythm. Objective - Vital Signs Vital signs: Vital Signs Temp 97.6 F 10/26/16 08:15 Pulse 53 L 10/26/16 08:15 Resp 18 10/26/16 08:15 BP 133/63 10/26/16 08:15 Pulse Ox 95 10/26/16 08:15 Intake & Output 10/25/16 10/26/16 10/26/16 18:59 06:59 18:59 Intake Total 600 Balance 600 Weight 151.4 kg Intake: Oral 600 Other: Voiding Method Toilet Toilet # Voids 1 3 - Exam General appearance: Present: cooperative, morbidly obese, no acute distress. Absent: average body habitus, disheveled, mild distress, obese, severe distress , thin - EENT Eyes: Present: normal appearance. Absent: abnormal pupil, anicteric sclerae, disc margins sharp, edentulous, EOMI, PERRLA, fundus normal, photophobia, dentition normal, poor dentition, ptosis, scleral icterus ENT: Present: hard of hearing, normal oropharynx. Absent: hearing grossly normal, NA/AT, other, pharyngeal erythema, thrush, tonsillar exudates, tonsillar swelling Ears: bilateral: normal - Neck Neck: Present: normal ROM Carotids: bilateral: upstroke normal Thyroid: bilateral: normal size - Respiratory Respiratory: bilateral: CTA, diminished - Cardiovascular Rhythm: irregularly irregular Heart sounds: normal: S1, S2 Abnormal Heart Sounds: Present: systolic murmur, S3 Gallop - Gastrointestinal General gastrointestinal: Present: normal bowel sounds, scaphoid, soft. Absent : absent bowel sounds, decreased bowel sounds, distended, hepatomegaly, hyperactive bowel sounds, organomegaly, rigid, splenomegaly, tenderness, umbilical hernia, ventral hernia - Integumentary Integumentary: Present: normal, pale, rash. Absent: calor, cellulitis, cyanotic , decreased turgor, flushed, jaundiced, normal turgor, ulcer - Neurologic Neurologic: Present: CNII-XII intact. Absent: focal deficits - Musculoskeletal Musculoskeletal: Present: gait normal, generalized weakness. Absent: strength equal bilaterally, right sided weakness, left sided weakness - Psychiatric Psychiatric: Present: A&O x's 3, appropriate affect. Absent: intact judgment & insight - Labs CBC & Chem 7: 10/25/16 05:43 Labs: Abnormal Lab Results - Last 24 Hours (Table) 10/25/16 Range/Units 16:49 POC Glucose (mg/dL) 101 H (75-99) mg/dL Assessment and Plan Plan: 1 A. fib with RVR: Symptomatic, patient was hospitalized started on Tikosyn IV has been watch hemodynamically for any arrhythmia or any significant change in EKG. 2 type 2 diabetes: Patient has been on metformin, resume medication continue Accu-Chek with sliding scales coverage. 3 hypertension: Has been on losartan along with metoprolol. 4 hyperlipidemia: Has been on atorvastatin continue medication. 5 obstructive sleep apnea: Patient had CPAP and using regularly. 6 chronic edema: Has been use diuretics on and off on demand. 7 mild neuropathy: Patient still refuses medication at this point for it. 8 chronic diastolic heart failure continue losartan and spironolactone. 9 GERD/GI prophylaxis. 10 BPH: Watch for any urinary retention. DVT prophylaxis: Patient is on anticoagulation currentlywith eliquis. Discharge plan: Home Impression and plan of care have been directed as dictated by the signing physician. Albertina Voss nurse practitioner acting as scribe for signing physician. Time with Patient: Greater than 30
--- NOTE | 2016-10-26 12:55 | P.PN ---
Progress Note - Text Patient is doing well from a cardiac standpoint. He maintains sinus rhythm, heart rates between 50 and 60 beats a minute after being started on very low- dose carvedilol and stopping metoprolol. He is on ELIQUIS 5 mg twice daily for stroke prevention. He denies any chest discomfort no undue shortness of breath no dizziness or lightheadedness. His energy level has improved now that he is in sinus rhythm On examination He is afebrile 97.6, pulse rate between 50 and 60 beats a minute sinus with PACs , normal respirations, blood pressure ranging from 133-151/63-75 mmHg Heart sounds are normal no murmurs no gallops Breath sounds are normal, no rhonchi no crackles Abdomen is soft nontender Extremities are warm, no edema Impression Persistent symptomatic atrial fibrillation, failed amiodarone After an adequate bleeding., Inpatient admission for initiating dofetilide Creatinine clearance 114 After the second dose of dofetilide 500 g, he chemically converted and therefore did not require electrical cardioversion He has maintained sinus rhythm ever since. Very occasional PVCs His absolute QT interval has remained around 460 ms He has been monitored for the last 4-5 days, and monitored in sinus rhythm for the last 3-1/2 days Coronary artery disease status post coronary stenting obstructive sleep apnea on a BiPAP mask Mild sinus bradycardia Adult-onset diabetes Hypertension Chemical conversion with second dose of dofetilide 500 g Normal magnesium normal potassium Plan Detailed education provided regarding Tikosyn. All questions answered All the do's and don'ts regarding Tikosyn use explained in detail Stop amlodipine, stop metoprolol Carvedilol 3.125 mg, half tablet twice daily Losartan 150 mg by mouth daily, this represents a higher dose Spironolactone 25 mg by mouth daily magnesium oxide 250 mg daily Continue ELIQUIS Continue diabetes medications, metformin, testing was on metformin Follow-up plan Follow-up Holter monitor in [address] Vigil in 3 weeks Follow-up with Dr. Dr. Pascual in 6-8 weeks 6 monthly follow-up with Dr. Vigil
--- NOTE | 2017-03-10 17:32 | DS ---
ADDENDUM: The note, originally dictated as a progress note on 10/26/2016, is actually the discharge summary with the additional information as dictated below. DATE OF ADMISSION: 10/22/2016 DATE OF DISCHARGE: 10/26/2016 In summary, patient was admitted with persistent symptomatic atrial fibrillation with failed amiodarone. Amiodarone has been discontinued. Dofetilide was initiated. He converted chemically with the second dose of 500 mcg of dofetilide and maintained sinus rhythm thereafter, ( ) QT interval of 460 ms. He was monitored for 4 to 5 days. Other diagnoses include: 1. Coronary artery disease, status post coronary stenting. 2. Obstructive sleep apnea, using a BiPAP mask. 3. Mild sinus bradycardia. 4. Adult-onset diabetes. 5. Hypertension. Examination was normal. He was discharged home in stable condition. Amlodipine was discontinued. Metoprolol was discontinued. Carvedilol was started. Losartan was started. Spironolactone was started. Magnesium oxide was started. Eliquis was continued. Diabetes medications were continued. He will follow up with Dr. Pascual as scheduled.
== END 2016-10-26 14:15 | disposition home or self-care (01) | DRG 309 ==
LOC: 6SEL 14:17
PROVIDERS: ADMIT Internal Medicine Clinical Cardiac Electrophysiology; ATTEND Internal Medicine Clinical Cardiac Electrophysiology
DX: I48.1 Persistent atrial fibrillation (principal); Z68.42 Body mass index [BMI] 45.0-49.9, adult; I50.32 Chronic diastolic (congestive) heart failure; E11.40 Type 2 diabetes mellitus with diabetic neuropathy, unspecified; I11.0 Hypertensive heart disease with heart failure; E66.01 Morbid (severe) obesity due to excess calories; I25.10 Atherosclerotic heart disease of native coronary artery without angina pectoris; G47.33 Obstructive sleep apnea (adult) (pediatric); E78.2 Mixed hyperlipidemia; R00.1 Bradycardia, unspecified; K21.9 Gastro-esophageal reflux disease without esophagitis; N40.0 Benign prostatic hyperplasia without lower urinary tract symptoms; Z95.5 Presence of coronary angioplasty implant and graft; Z96.653 Presence of artificial knee joint, bilateral; Z87.891 Personal history of nicotine dependence; Z79.82 Long term (current) use of aspirin; Z79.01 Long term (current) use of anticoagulants; Z79.84 Long term (current) use of oral hypoglycemic drugs; Z79.899 Other long term (current) drug therapy
CPT/HCPCS: 36415; 71020; 80048; 80053; 82150; 82550; 82553; 83690; 83735; 83880; 84443; 84484; 85025; 85610; 85730; 94660; 99285

== ENCOUNTER 2024-12-17 08:02 | Day surgery (SDC) | payer MEDICARE ==
[~2024-12-17 08:02] MED LIST: HYDROmorphone 0.5 MG/0.5 ML SYRINGE IVP PRN; MIDAZOLAM 2 MG/2 ML VIAL IV PRN
[2024-12-17 09:46] LABS: Glucose,Whole Blood 98 mg/dL (70-110)
[2024-12-17 09:56] LABS: Basophils % (A) 1 %; Eosinophils # (A) 0.2 k/uL (0-0.7); Eosinophils % (A) 3 %; HGB 15.4 gm/dL (13.0-17.5); Lymphocytes # (A) 1.5 k/uL (1.0-4.8); Lymphocytes % (A) 22 %; MCH 30.8 pg (25.0-35.0); MCHC 32.8 g/dL (31.0-37.0); MCV 93.8 fL (80.0-100.0); Mean Platelet Volume 7.8; Monocytes # (A) 0.4 k/uL (0-1.0); Monocytes % (A) 6 %; Neutrophils # (A) 4.6 k/uL (1.3-7.7); Neutrophils % (A) 67 %; Platelet Count 157 k/uL (150-450); RBC 5.01 m/uL (4.30-5.90); RDW 13.4 % (11.5-15.5); WBC 6.9 k/uL (3.8-10.6)
[2024-12-17] MEDS: SODIUM CHLORIDE 0.9% 1,000 ML IV SCH (09:58)
[2024-12-17] MEDS: IV FLUID CONTINUATION 1,000 ML IV ONE (10:01)
[2024-12-17 10:22] LABS: ALT 28 U/L (4-49); AST 31 U/L (17-59); African American GFR (CKD) 49 (>60 ml/min/1.73 sqM); Albumin 4.1 g/dL (3.5-5.0); Alkaline Phosphatase 64 U/L (38-126); Anion Gap 8 mmol/L; Blood Urea Nitrogen 28 mg/dL (9-20); Calcium 9.8 mg/dL (8.4-10.2); Carbon Dioxide 25 mmol/L (22-30); Chloride 104 mmol/L (98-107); Glucose 108 mg/dL (74-99); Non-African American GFR(CKD) 43 (>60 ml/min/1.73 sqM); Potassium 4.6 mmol/L (3.5-5.1); Sodium 137 mmol/L (137-145); Total Bilirubin 1.1 mg/dL (0.2-1.3); Total Protein 6.7 g/dL (6.3-8.2)
[2024-12-17] MEDS ORDERED: ePHEDrine 50 MG/ML 1 ML VIAL ONE (11:49)
[2024-12-17] MEDS ORDERED: PHENYLEPHRINE 10 MG/ML VIAL ONE (11:49)
[2024-12-17] MEDS ORDERED: PROTAMINE SULFATE 10 MG/ML 5 ML VIAL ONE (11:49)
[2024-12-17] MEDS ORDERED: SUCCINYLCHOLINE CHLORIDE 200 MG/10 ML VIAL IV ONE (11:49)
[2024-12-17] MEDS ORDERED: fentaNYL (PF) 50 MCG/ML 2 ML AMP ONE (11:49)
[2024-12-17] MEDS ORDERED: PROPOFOL 10 MG/ML 20 ML VIAL IV ONE (11:49)
[2024-12-17] MEDS ORDERED: HEPARIN SODIUM,PORCINE 10,000 UNIT/ML 1 ML VIAL ONE (11:49)
[2024-12-17] MEDS ORDERED: VASOPRESSIN 20 UNIT/ML 1 ML VIAL ONE (11:49)
[2024-12-17] MEDS ORDERED: LIDOCAINE 1% INJ 10MG/ML (20 ML MDV) ONE (11:49)
[2024-12-17] MEDS ORDERED: ATROPINE SULFATE 0.1 MG/ML 10ML SYRINGE ONE (11:49)
[2024-12-17] MEDS ORDERED: HEPARIN SODIUM,PORCINE 5,000 UNIT/ML 1 ML VIAL ONE (11:49)
[2024-12-17] MEDS ORDERED: GLYCOPYRROLATE 0.2 MG/ML 2 ML VIAL ONE (11:49)
--- NOTE | 2024-12-17 12:22 | P.HPCAR ---
History of Present Illness This is Dr. Honeyctut dictating an H/P on this patient The patient was interviewed and examined IMPRESSION / ASSESSMENT: Persistent atrial fibrillation Recurrence on dofetilide Left bundle branch block pattern Morbid obesity, BMI 44 Obstructive sleep apnea Creatinine 1.5 GFR 48 Left atrial enlargement History of coronary stenting dyslipidemia type 2 diabetes PLAN: A-fib ablation with PVI and linear ablation the left atrium Continue dofetilide HPI Patient denies any chest discomfort angina orthopnea PND heart failure symptoms No fever chills cough expectoration Tiredness fatigue with atrial fibrillation ROS: No fever chills or rigors, no cough, phlegm or expectoration, no nausea, vomiting or diarrhea, no hematuria, dysuria, no musculoskeletal complaints, no strokes or seizures, no skin lesions. EXAMINATION: Pulse rate 83 irregular afebrile Normal respirations Blood pressure elevated No JVD No lower extremity edema Heart sounds are soft no murmurs Clear lungs no rhonchi no crackles Soft abdomen REVIEW OF LABS, ECG & MEDICAL DATA White count 6.9 thousand, hematocrit 47, platelet count 157,000 Normal electrolytes sodium 137 potassium 4.6 BUN 28 and creatinine 1.5 Physical Exam Vitals: Vital Signs Temp Pulse Resp BP Pulse Ox 12/17/24 09:58 97.9 F 83 16 194/79 97 Intake and Output 12/16/24 12/17/24 12/17/24 22:59 06:59 14:59 Intake Total 20 Balance 20 Intake: IV 20 Other: Weight 146.3 kg Past Medical History Past Medical History: Atrial Fibrillation, Chest Pain / Angina, Diabetes Mellitus, Hyperlipidemia, Hypertension, Sleep Apnea/CPAP/BIPAP Additional Past Medical History / Comment(s): SOB w/exertion, uses BIPAP see dr honeycutt's h & p History of Any Multi-Drug Resistant Organisms: None Reported, MRSA Date of last positivie culture/infection: before 1999 MDRO Source:: knee Past Surgical History: Heart Catheterization With Stent, Joint Replacement Additional Past Surgical History / Comment(s): bilateral knee replacement, cardioversion rt shoulder replaced. diane cataract surgery Past Anesthesia/Blood Transfusion Reactions: No Reported Reaction, Motion Sickness Additional Past Anesthesia/Blood Transfusion Reaction / Comment(s): has felt procedures when iv sedation given Date of Last Stent Placement:: 2013 Smoking Status: Former smoker - Past Family History Daughter(s) Family Medical History: Cancer Sister(s) Family Medical History: Deep Vein Thrombosis (DVT) Physical Examination Vital Signs Temp Pulse Resp BP Pulse Ox 12/17/24 09:58 97.9 F 83 16 194/79 97 Intake and Output 12/16/24 12/17/24 12/17/24 22:59 06:59 14:59 Intake Total 20 Balance 20 Intake: IV 20 Other: Weight 146.3 kg Results 12/17/24 08:30 12/17/24 08:30 Cardiac Enzymes 12/17/24 Range/Units 08:30 AST 31 (17-59) U/L CBC 12/17/24 Range/Units 08:30 WBC 6.9 (3.8-10.6) k/uL RBC 5.01 (4.30-5.90) m/uL Hgb 15.4 (13.0-17.5) gm/dL Hct 47.0 (39.0-53.0) % Plt Count 157 (150-450) k/uL Comprehensive Metabolic Panel 12/17/24 Range/Units 08:30 Sodium 137 (137-145) mmol/L Potassium 4.6 (3.5-5.1) mmol/L Chloride 104 (98-107) mmol/L Carbon Dioxide 25 (22-30) mmol/L BUN 28 H (9-20) mg/dL Creatinine 1.51 H (0.66-1.25) mg/dL Glucose 108 H (74-99) mg/dL Calcium 9.8 (8.4-10.2) mg/dL AST 31 (17-59) U/L ALT 28 (4-49) U/L Alkaline Phosphatase 64 (38-126) U/L Total Protein 6.7 (6.3-8.2) g/dL Albumin 4.1 (3.5-5.0) g/dL Current Medications Generic Name Dose Route Start Last Admin Trade Name Freq PRN Reason Stop Dose Admin Hydromorphone HCl 0.5 mg 12/17/24 07:12 Hydromorphone 0.5 Mg/0.5 Ml Syringe IVP 12/18/24 07:11 Q5M PRN Phase 1 or 2 - Pain Control Sodium Chloride 1,000 mls @ 20 mls/hr 12/17/24 07:12 12/17/24 09:58 Saline 0.9% IV 01/16/25 07:11 20 mls/hr .Q24H BERNARD Administration Lactated Ringer's 1,000 mls @ 20 mls/hr 12/17/24 07:12 Lactated Ringers IV 01/16/25 07:11 .Q24H BERNARD Midazolam HCl 2 mg 12/17/24 07:12 Midazolam 2 Mg/2 Ml Vial IV 12/18/24 07:11 ONCE PRN Pre-Op Anxiety Intake and Output 12/16/24 12/17/24 12/17/24 22:59 06:59 14:59 Intake Total 20 Balance 20 Intake: IV 20 Other: Weight 146.3 kg Patient Weight 12/18/24 06:59 Weight 146.3 kg 12/17/24 08:30 12/17/24 08:30
[2024-12-17] MEDS: LIDOCAINE 1% INJ 10MG/ML (20 ML MDV) SQ ONE (12:54)
[2024-12-17] MEDS: HEPARIN SOD,PORK IN 0.45% NACL 25,000 UNIT in 0.45% NACL 1 250ML.BAG IV ONE ×2 (12:54)
[2024-12-17] MEDS: HEPARIN SODIUM (1,000 UNIT/ML) 1,000 UNIT in SODIUM CHLORIDE 0.9% 1,000 ML IRRIGATION ONE (12:55)
[2024-12-17] MEDS: ROPIVACAINE 5 MG/ML 30 ML VIAL MISCELLANE ONE (12:56)
[2024-12-17] MEDS: IOPAMIDOL-370 100ML BTL INJ ONE (16:13)
[2024-12-17] MEDS ORDERED: ACETAMINOPHEN TAB 325 MG TAB PO PRN (17:30)
--- NOTE | 2024-12-17 17:34 | P.PRLE ---
RE: Marty Hoskins Dear amarilis Marty underwent an A-fib ablation successfully with termination of A-fib just outside the right superior pulmonary vein. Following that, atrial fibrillation was noninducible despite burst stimulation on Isopril He will continue Eliquis at a higher dose of 5 mg twice daily for the first 2 months and then reduce the dose down to 2.5 mg twice daily as before He will continue dofetilide 250 mcg twice daily and all his other medications as before Thank you for entrusting me with the care of the patient Warm regards Sincerely Justo Honeycutt
--- NOTE | 2024-12-17 17:44 | P.EPPROC ---
- EP Procedure Note Electrophysiology Procedure Note: PROCEDURE A. fib ablation with PVI at an antral level, left atrial septal ablation and left atrial roof ablation DIAGNOSIS Persistent atrial fibrillation, symptomatic, refractory to therapy with dofetilide RESULT No left atrial appendage mass seen on intracardiac echo, Large common left sided pulmonary vein Termination of atrial fibrillation outside the right superior pulmonary vein during cryoablation Successful A. fib ablation/pulmonary vein isolation of all veins using cryo- ablation Complete entrance block in all 4 veins confirmed No evidence for phrenic nerve injury Left atrial septal ablation Left atrial roof ablation Esophageal deflection YES PROCEDURE DETAILS Written informed consent prior to procedure. Patient brought to the EP lab. General anesthesia given. Heparin administered. A city maintained above 300 seconds Both groins prepped and draped per protocol and venous sheaths placed. Esophagus intubated, circa catheter for temperature monitoring an endoscope for possible esophageal deflection. Phrenic nerve monitoring performed. Esophageal temperature monitoring performed. Esophageal deflection performed if circa catheter overlapping with the balloon or circa temperature less than 27.5C Intracardiac echocardiography performed. Pericardium evaluated. Left atrial appendage evaluated. Left atrium evaluated along with pulmonary veins Transseptal catheterization performed under fluoroscopic guidance and intracardiac echo guidance Cryoablation sheath exchanged, balloon catheter along with achieve catheter placed in the left atrium. Pulmonary veins isolated in the following sequence: Left superior pulmonary vein followed by left inferior pulmonary vein, followed by right inferior pulmonary vein and lastly right superior pulmonary vein. Phrenic nerve stimulation along with capture thresholds within the SVC and right superior pulmonary vein to identify the phrenic nerve proximity to the cryo- balloon. Pulmonary veins isolated and confirmed with entrance and exit block. Phrenic nerve integrity confirmed at the end of the procedure Ablation of the left atrial roof performed with sequential lesions from the left superior to the right superior pulmonary veins. Later mapping with a Penta ray catheter followed by completion of the ablation line from the left superior to the mid left atrial roof. Complete line of block made Ablation of the left atrial septum performed with cannulation of the superior branch of the right inferior or the inferior branch of the right superior vein to achieve ablation of the posterior septum of the left atrium. Mapping of the Penta ray Catheter thereafter. RF ablation along the septum alexander g complex fractionated electrograms to complete the septal ablation Termination of atrial fibrillation just outside the right superior pulmonary vein, which is a large vein Diagnostic catheters for the high right atrium, His bundle, coronary sinus placed. LA and RA pressures recorded RA pressure: 15/6/10 LA pressure: 27/5/14 Diagnostic EP study with coronary sinus pacing and recording Baseline measurements: Once the patient converted to sinus rhythm sinus cycle length 1096, MN interval 187, QRS 121 and QT 528 ms High-dose Isopril employed. Burst stimulation performed from the high right atrium without induction of any atrial fibrillation Venous sheaths were removed and hemostasis assured with a closure devices on the right side. Unable to close with a closure device on the cryo sheath access site. Patient extubated and transferred to recovery Increase procedural time During ablation multiple attempts had to be made to move the esophagus a safe distance of the from the pulmonary vein draining cryoablation, to avoid excessive thermal cooling of the esophagus This took extra time and effort to keep the esophagus a safe distance away from the cryoablation balloon. Very large left common pulmonary vein requiring segmental isolation circumferentially all around this common vein. Complete isolation of the common vein confirmed on Don mapping as well as with pace mapping with exit block Very difficult left atrial roof anatomy. However when the right sided portion of the roof was being ablated with cryoablation, termination of A-fib occurred Later a detailed map of the left atrium was performed. There was a gap in the roofline from the mid LA roof to the left superior pulmonary vein and RF ablations were performed to complete this line. This line was then extended into the groove between the left atrial appendage and the left common vein. Left atrial septal ablation was performed with cryoablation. 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
[2024-12-17] MEDS ORDERED: APIXABAN 2.5 MG TABLET PO SCH (21:00)
[2024-12-17] MEDS: LACTATED RINGERS 1,000 ML IV SCH (21:17)
[2024-12-17] MEDS: LABETALOL 200 MG TAB PO SCH (21:23)
[2024-12-17] MEDS: ACETAMINOPHEN IV (For NPO) 1,000 MG in EMPTY BAG 1 BAG IVPB ONE (21:23)
[2024-12-17] MEDS: ATORVASTATIN 10 MG TAB PO SCH (21:24)
[2024-12-17] MEDS: DOFETILIDE 250 MCG CAP PO SCH (21:24)
[2024-12-18] MEDS: APIXABAN 5 MG TAB PO SCH (00:20)
[2024-12-18 06:08] LABS: Glucose,Whole Blood 128 mg/dL (70-110)
[2024-12-18] MEDS: MAGNESIUM OXIDE 400 MG TAB PO SCH (08:00)
[2024-12-18] MEDS: metFORMIN 500 MG TAB PO SCH (08:01)
[2024-12-18] MEDS: LOSARTAN 50 MG TAB PO SCH (08:01)
[2024-12-18] MEDS: ASPIRIN 81 MG PO SCH (08:01)
[2024-12-18 08:45] VITALS: BP 110/68; PULSE 64; RESP 18; TEMP 98
[2024-12-18 08:51] LABS: Blood Urea Nitrogen 25.8 mg/dL (9.0-27.0); Carbon Dioxide 22.3 mmol/L (21.6-31.8); Chloride 106 mmol/L (96-109); Glucose 126 mg/dL (70-110); Magnesium 2.1 mg/dL (1.5-2.4); Potassium 4.5 mmol/L (3.5-5.5); Sodium 140 mmol/L (135-145)
== END 2024-12-18 12:26 | disposition home or self-care (01) ==
LOC: CATHEP 08:02 → 6NMEDSUR 17:39 → CATHEP 12-18 12:26
PROVIDERS: ATTEND Internal Medicine Clinical Cardiac Electrophysiology
DX: I48.19 Other persistent atrial fibrillation (principal); I44.7 Left bundle-branch block, unspecified; I11.9 Hypertensive heart disease without heart failure; E11.9 Type 2 diabetes mellitus without complications; E78.5 Hyperlipidemia, unspecified; E66.01 Morbid (severe) obesity due to excess calories; G47.33 Obstructive sleep apnea (adult) (pediatric); Z68.41 Body mass index [BMI] 40.0-44.9, adult; Z95.5 Presence of coronary angioplasty implant and graft; Z82.49 Family history of ischemic heart disease and other diseases of the circulatory system; Z96.653 Presence of artificial knee joint, bilateral; Z87.891 Personal history of nicotine dependence; Z79.899 Other long term (current) drug therapy; Z79.82 Long term (current) use of aspirin; Z79.84 Long term (current) use of oral hypoglycemic drugs
CPT/HCPCS: 93623; 93656; 93657; 86900; 86901; 80053; 80048; 83735; 85025; 86850; C1769 ×2; C1894; C1760; C1730 ×2; C1731; C1759; C1733; C1766; C1732; J2003; J1644 ×2; J2795; J0131; Q9967

== ENCOUNTER → 2025-01-25 | Outpatient (CLI) | payer MEDICARE ==
[2025-01-25 15:06] LABS: HCT 39.4 % (39.6-50.0); HGB 12.8 g/dL (13.0-17.0); MCH 32.2 pg (27.0-32.0); MCHC 32.5 g/dL (32.0-37.0); Mean Platelet Volume 10.6 FL (9.5-12.2); NRBC Per 100 WBC 0 X 10*3/uL (0.00-0.01); Platelet Count 171 X 10*3/uL (140-440); RBC 3.98 X 10*6/uL (4.40-5.60); WBC 7.12 X 10*3/uL (4.50-10.00)
[2025-01-25 15:38] LABS: ALT 21 U/L (10-49); AST 24 U/L (14-35); Alkaline Phosphatase 63 U/L (41-126); BUN/Creat Ratio 16.13 Ratio (12.00-20.00); Blood Urea Nitrogen 24.2 mg/dL (9.0-27.0); Calcium 9.8 mg/dL (8.7-10.3); Carbon Dioxide 24.7 mmol/L (21.6-31.8); Chloride 111 mmol/L (96-109); Chol/HDL Ratio 3.25 Ratio; Globulin 2.1 g/dL (1.6-3.3); Glucose 108 mg/dL (70-110); LDL Cholesterol,Calculated 66.8 mg/dL (0.0-131.0); Potassium 5.1 mmol/L (3.5-5.5); Sodium 147 mmol/L (135-145); Total Bilirubin 0.7 mg/dL (0.3-1.2); Total Protein 6.1 g/dL (6.2-8.2)
== END | disposition home or self-care (01) ==
LOC: LABWHC1 09:44
PROVIDERS: ATTEND Nurse Practitioner Adult Health
DX: E78.2 Mixed hyperlipidemia (principal); I48.11 Longstanding persistent atrial fibrillation; N18.9 Chronic kidney disease, unspecified
CPT/HCPCS: 36415; 80053; 80061; 85027